=== PATIENT | male | born 1980 | race Hispanic/Latino ===

== ENCOUNTER 2023-08-29 18:40 | Inpatient (IN) | payer MEDICARE ==
[~2023-08-29] VITALS: Ht 165.1 cm; Wt 226.8 kg
[2023-08-29 19:49] LABS: BASOPHILS % 0.4 % (0.0-1.0); EOSINOPHILS # (AUTO) 0.1 (0.0-0.4); EOSINOPHILS % 0.6 % (0.0-6.0); HEMATOCRIT 53.3 % (38.2-49.6); HEMOGLOBIN 16.9 g/dL (14.0-18.0); LYMPHOCYTES # (AUTO) 0.7 (1.0-3.2); LYMPHOCYTES % 8.1 % (18.0-39.1); MEAN CORPUSCULAR HEMOGLOBIN 27.2 pg (28-32); MEAN CORPUSCULAR HGB CONC 31.7 g/dL (31-35); MEAN CORPUSCULAR VOLUME 85.7 fL (81-99); MONOCYTES # (AUTO) 0.3 (0.2-0.8); MONOCYTES % 3.9 % (4.4-11.3); NEUTROPHILS % 86.5 % (38.7-80.0); PLATELET COUNT 165 x10e3/uL (140-360); RED BLOOD COUNT 6.22 x10e6/uL (4.3-5.7); RED CELL DISTRIBUTION WIDTH 16.8 % (11.7-14.4); WHITE BLOOD COUNT 8.13 x10e3/uL (4.8-10.8)
[2023-08-29 20:07] LABS: ALBUMIN 3.6 g/dL (3.5-5.0); ALBUMIN/GLOBULIN RATIO 0.9 (0.8-2.0); ANION GAP 13.3 mmol/L (8-16); BILIRUBIN,TOTAL 1.2 mg/dL (0.2-1.2); CALCIUM 8.9 mg/dL (8.4-10.2); CREATININE, SERUM 0.78 mg/dL (0.72-1.25); POTASSIUM 4.3 mmol/L (3.5-5.1); TOTAL PROTEIN 7.4 g/dL (6.5-8.1)
[2023-08-29] MEDS ORDERED: SODIUM CHLORIDE FLUSH 10 ML SYR INJ PRN (22:00)
[2023-08-29] MEDS ORDERED: METOLAZONE 5 MG TAB PO STA (22:36)
[2023-08-29] MEDS ORDERED: POTASSIUM CHLORIDE 20 MEQ TAB CR PO PRN (22:45)
[2023-08-29] MEDS ORDERED: MELATONIN 5 MG TABLET PO PRN (22:45)
[2023-08-29] MEDS ORDERED: SIMETHICONE 80 MG CHEW PO PRN (22:45)
[2023-08-29] MEDS ORDERED: ALBUTEROL/IPRATROPIUM 3 ML NEB NEB PRN (22:45)
[2023-08-29] MEDS ORDERED: HYDRALAZINE HCL 20 MG/ML VIAL IV PRN (22:45)
[2023-08-29] MEDS ORDERED: LIDOCAINE 4% PATCH TP PRN (22:45)
[2023-08-29] MEDS ORDERED: BENZONATATE 100 MG CAP PO PRN (22:45)
[2023-08-29] MEDS ORDERED: DIPHENHYDRAMINE HCL 25 MG CAP PO PRN (22:45)
[2023-08-29] MEDS ORDERED: DEXTROSE 50% SYRINGE 50 ML IV PRN (22:45)
[2023-08-29] MEDS ORDERED: FUROSEMIDE INJ 100 MG in SODIUM CHLORIDE 0.9% 90 ML IV SCH (23:30)
[2023-08-29] MEDS ORDERED: Vancomycin IV 1.5 GM in SODIUM CHLORIDE 0.9% 250ML 250 ML IV SCH (23:30)
[2023-08-30] VITALS (12 sets, daily range): BP systolic 119–138; BP diastolic 68–86; PULSE 62–84; RESP 18–20; TEMP 97.1–98.6; O2SAT 92–100
[2023-08-30] MEDS ORDERED: SODIUM CHLORIDE 0.9% 250ML 250 ML ONE ×2 (00:50→01:47)
[2023-08-30] MEDS: FUROSEMIDE INJ 10 MG/ML 4 ML VIAL IV SCH ×2 (01:04→10:00)
[2023-08-30] MEDS ORDERED: FUROSEMIDE INJ 10 MG/ML 10 ML VIAL ONE (01:29)
[2023-08-30] MEDS: FUROSEMIDE INJ 100 MG in SODIUM CHLORIDE 0.9% 90 ML IV SCH ×3 (01:48→17:33)
[2023-08-30] MEDS ORDERED: METOPROLOL TART50 MG PO (02:51)
[2023-08-30] MEDS ORDERED: BENAZEPRIL HCL40 MG PO (02:51)
[2023-08-30] MEDS ORDERED: FUROSEMIDE INJ 10 MG/ML 4 ML VIAL IV SCH (03:00)
[2023-08-30] MEDS: ACETAMINOPHEN 325 MG TAB PO PRN ×2 (03:15→10:14)
[2023-08-30 06:37] LABS: BASOPHILS % 0.2 % (0.0-1.0); HEMATOCRIT 53.8 % (38.2-49.6); HEMOGLOBIN 17.3 g/dL (14.0-18.0); LYMPHOCYTES # (AUTO) 0.7 (1.0-3.2); LYMPHOCYTES % 7.2 % (18.0-39.1); MEAN CORPUSCULAR HEMOGLOBIN 27.5 pg (28-32); MEAN CORPUSCULAR HGB CONC 32.2 g/dL (31-35); MEAN CORPUSCULAR VOLUME 85.7 fL (81-99); MONOCYTES # (AUTO) 0.5 (0.2-0.8); MONOCYTES % 5.2 % (4.4-11.3); NEUTROPHILS # (AUTO) 8.6 (2.1-6.9); NEUTROPHILS % 86.6 % (38.7-80.0); PLATELET COUNT 208 x10e3/uL (140-360); RED BLOOD COUNT 6.28 x10e6/uL (4.3-5.7); RED CELL DISTRIBUTION WIDTH 16.5 % (11.7-14.4); WHITE BLOOD COUNT 9.98 x10e3/uL (4.8-10.8)
[2023-08-30 06:58] LABS: ALBUMIN 3.7 g/dL (3.5-5.0); ALBUMIN/GLOBULIN RATIO 0.9 (0.8-2.0); ANION GAP 17.2 mmol/L (8-16); BILIRUBIN,TOTAL 1.2 mg/dL (0.2-1.2); CALCIUM 9.7 mg/dL (8.4-10.2); CREATININE, SERUM 0.89 mg/dL (0.72-1.25); POTASSIUM 4.2 mmol/L (3.5-5.1)
[2023-08-30] MEDS: PANTOPRAZOLE SOD 40 MG TABEC PO SCH (10:00)
[2023-08-30] MEDS: ENOXAPARIN SOD INJ 40 MG/0.4 ML SYR SC SCH ×2 (10:01→17:33)
[2023-08-30] MEDS ORDERED: Vancomycin IV 1 GM VIAL ONE ×2 (10:50→20:38)
[2023-08-30] MEDS: VANCOMYCIN 1.5 GM/300 ML 300 ML IV SCH ×2 (11:28→21:52)
[2023-08-30] MEDS: HYDROCODONE/APAP 5MG-325MG TAB PO PRN (20:29)
[2023-08-30] MEDS ORDERED: SODIUM CHLORIDE 0.9% 500ML 500 ML ONE (20:39)
[2023-08-30] MEDS ORDERED: Vancomycin IV 500 MG ONE (20:45)
[2023-08-30] MEDS: DOCUSATE SODIUM 100 MG CAP PO PRN (21:11)
[2023-08-31] VITALS (12 sets, daily range): BP systolic 129–157; BP diastolic 78–92; PULSE 71–97; RESP 16–20; TEMP 97.7–98.2; O2SAT 93–98
[2023-08-31] MEDS: FUROSEMIDE INJ 100 MG in SODIUM CHLORIDE 0.9% 90 ML IV SCH (03:02)
[2023-08-31 05:40] LABS: BASOPHILS # (AUTO) 0.1 (0.0-0.1); BASOPHILS % 0.6 % (0.0-1.0); EOSINOPHILS # (AUTO) 0.2 (0.0-0.4); EOSINOPHILS % 1.7 % (0.0-6.0); HEMOGLOBIN 18.5 g/dL (14.0-18.0); LYMPHOCYTES # (AUTO) 2.1 (1.0-3.2); LYMPHOCYTES % 19.5 % (18.0-39.1); MEAN CORPUSCULAR HEMOGLOBIN 27.5 pg (28-32); MEAN CORPUSCULAR HGB CONC 32.5 g/dL (31-35); MEAN CORPUSCULAR VOLUME 84.8 fL (81-99); MONOCYTES # (AUTO) 1.4 (0.2-0.8); MONOCYTES % 12.3 % (4.4-11.3); NEUTROPHILS # (AUTO) 7.1 (2.1-6.9); NEUTROPHILS % 65.2 % (38.7-80.0); PLATELET COUNT 196 x10e3/uL (140-360); RED BLOOD COUNT 6.72 x10e6/uL (4.3-5.7); RED CELL DISTRIBUTION WIDTH 17.1 % (11.7-14.4); WHITE BLOOD COUNT 10.95 x10e3/uL (4.8-10.8)
[2023-08-31 06:08] LABS: ANION GAP 19.2 mmol/L (8-16); CALCIUM 9.6 mg/dL (8.4-10.2); CREATININE, SERUM 1.2 mg/dL (0.72-1.25); POTASSIUM 3.2 mmol/L (3.5-5.1)
[2023-08-31] MEDS: ONDANSETRON HCL INJ 2MG/ML 2ML 2 MG/ML VIAL IV PRN ×3 (08:46→23:47)
[2023-08-31] MEDS: PAROXETINE HCL 12.5 MG TABSR PO SCH (08:49)
[2023-08-31] MEDS: ENOXAPARIN SOD INJ 40 MG/0.4 ML SYR SC SCH ×2 (08:49→17:50)
[2023-08-31] MEDS: PANTOPRAZOLE SOD 40 MG TABEC PO SCH (08:49)
[2023-08-31] MEDS: HYDROCODONE/APAP 5MG-325MG TAB PO PRN ×2 (11:09→23:47)
[2023-08-31] MEDS: VANCOMYCIN 1.5 GM/300 ML 300 ML IV SCH ×2 (11:09→22:11)
[2023-08-31] MEDS ORDERED: POTASSIUM CHLORIDE 20 MEQ TAB CR PO ONE (14:30)
[2023-08-31] MEDS: ACETAZOLAMIDE SODIUM 500 MG/VIAL IV SCH (17:50)
[2023-09-01] VITALS (9 sets, daily range): BP systolic 120–132; BP diastolic 62–89; PULSE 73–97; RESP 18–20; TEMP 98–100.1; O2SAT 93–97
[2023-09-01] MEDS: HYDROCODONE/APAP 5MG-325MG TAB PO PRN ×3 (05:20→22:43)
[2023-09-01] MEDS: ACETAZOLAMIDE SODIUM 500 MG/VIAL IV SCH ×2 (08:35→18:02)
[2023-09-01] MEDS: PAROXETINE HCL 12.5 MG TABSR PO SCH (08:36)
[2023-09-01] MEDS: PANTOPRAZOLE SOD 40 MG TABEC PO SCH (08:36)
[2023-09-01] MEDS: ENOXAPARIN SOD INJ 40 MG/0.4 ML SYR SC SCH ×2 (08:36→18:03)
[2023-09-01 11:55] LABS: ANION GAP 16.6 mmol/L (8-16); CALCIUM 9.6 mg/dL (8.4-10.2); CREATININE, SERUM 0.99 mg/dL (0.72-1.25); POTASSIUM 3.6 mmol/L (3.5-5.1)
[2023-09-01] MEDS: VANCOMYCIN 1.5 GM/300 ML 300 ML IV SCH ×2 (12:09→21:48)
[2023-09-01] MEDS ORDERED: FUROSEMIDE INJ 10 MG/ML 4 ML VIAL IV ONE (13:30)
[2023-09-01] MEDS: ONDANSETRON HCL INJ 2MG/ML 2ML 2 MG/ML VIAL IV PRN (14:23)
[2023-09-02] VITALS (9 sets, daily range): BP systolic 105–123; BP diastolic 52–77; PULSE 76–111; RESP 18–22; TEMP 97.7–98.1; O2SAT 95–99
[2023-09-02] MEDS: HYDROCODONE/APAP 5MG-325MG TAB PO PRN ×3 (06:08→23:30)
[2023-09-02 06:58] LABS: BASOPHILS # (AUTO) 0.1 (0.0-0.1); BASOPHILS % 0.8 % (0.0-1.0); EOSINOPHILS # (AUTO) 0.2 (0.0-0.4); EOSINOPHILS % 2.3 % (0.0-6.0); HEMATOCRIT 55.6 % (38.2-49.6); HEMOGLOBIN 17.3 g/dL (14.0-18.0); LYMPHOCYTES # (AUTO) 0.9 (1.0-3.2); LYMPHOCYTES % 11.5 % (18.0-39.1); MEAN CORPUSCULAR HEMOGLOBIN 27.2 pg (28-32); MEAN CORPUSCULAR HGB CONC 31.1 g/dL (31-35); MEAN CORPUSCULAR VOLUME 87.4 fL (81-99); MONOCYTES # (AUTO) 0.9 (0.2-0.8); MONOCYTES % 11.4 % (4.4-11.3); NEUTROPHILS # (AUTO) 5.8 (2.1-6.9); NEUTROPHILS % 73.6 % (38.7-80.0); PLATELET COUNT 152 x10e3/uL (140-360); RED BLOOD COUNT 6.36 x10e6/uL (4.3-5.7); RED CELL DISTRIBUTION WIDTH 15.9 % (11.7-14.4); WHITE BLOOD COUNT 7.82 x10e3/uL (4.8-10.8)
[2023-09-02 07:14] LABS: ANION GAP 12.7 mmol/L (8-16); CALCIUM 8.9 mg/dL (8.4-10.2); CREATININE, SERUM 0.86 mg/dL (0.72-1.25); POTASSIUM 3.7 mmol/L (3.5-5.1)
[2023-09-02] MEDS: ACETAZOLAMIDE SODIUM 500 MG/VIAL IV SCH ×2 (09:34→16:59)
[2023-09-02] MEDS: ONDANSETRON HCL INJ 2MG/ML 2ML 2 MG/ML VIAL IV PRN ×2 (09:35→17:03)
[2023-09-02] MEDS: PANTOPRAZOLE SOD 40 MG TABEC PO SCH (09:35)
[2023-09-02] MEDS: ENOXAPARIN SOD INJ 40 MG/0.4 ML SYR SC SCH ×2 (09:35→16:59)
[2023-09-02] MEDS: PAROXETINE HCL 12.5 MG TABSR PO SCH (09:35)
[2023-09-02] MEDS: METOPROLOL SUCCINATE 50 MG TAB XL PO SCH (09:37)
[2023-09-02] MEDS: ACETAMINOPHEN 325 MG TAB PO PRN ×3 (09:49→20:43)
[2023-09-02] MEDS: VANCOMYCIN 1.5 GM/300 ML 300 ML IV SCH (11:31)
[2023-09-02] MEDS: CEFTRIAXONE 2 GM in SODIUM CHLORIDE 0.9% 100 ML IV SCH (12:58)
[2023-09-02] MEDS: DOCUSATE SODIUM 100 MG CAP PO PRN ×2 (13:06→20:32)
[2023-09-02] MEDS ORDERED: CLINDAMYCIN HC150 MG PO (13:27)
[2023-09-02] MEDS ORDERED: POTASSIUM CHLO20 ME1 PO (13:27)
[2023-09-02] MEDS ORDERED: BUMETANIDE1 MG PO (13:27)
[2023-09-02] MEDS ORDERED: POTASSIUM CHLORIDE 20 MEQ TAB CR PO ONE (13:45)
[2023-09-02] MEDS: FUROSEMIDE INJ 10 MG/ML 4 ML VIAL IV SCH ×2 (14:17→20:33)
[2023-09-02] MEDS ORDERED: FUROSEMIDE INJ 10 MG/ML 2 ML VIAL IV SCH (17:00)
[2023-09-03] VITALS: BP 132/69; PULSE 86; RESP 18; TEMP 98; O2SAT 98
[2023-09-03 04:00] VITALS: BP 132/58; PULSE 89; RESP 18; TEMP 98.6; O2SAT 100
[2023-09-03] MEDS: ONDANSETRON HCL INJ 2MG/ML 2ML 2 MG/ML VIAL IV PRN ×2 (04:07→10:55)
[2023-09-03] MEDS: ACETAMINOPHEN 325 MG TAB PO PRN ×2 (04:08→14:59)
[2023-09-03] MEDS: FUROSEMIDE INJ 10 MG/ML 4 ML VIAL IV SCH (05:21)
[2023-09-03 07:28] VITALS: PULSE 85; RESP 20; O2SAT 93
[2023-09-03 08:35] VITALS: BP 125/80; PULSE 90; RESP 20; TEMP 98.7; O2SAT 92
[2023-09-03 09:00] VITALS: BP 125/80; PULSE 90; RESP 20; TEMP 98.7; O2SAT 92
[2023-09-03] MEDS: CEFTRIAXONE 2 GM in SODIUM CHLORIDE 0.9% 100 ML IV SCH (09:59)
[2023-09-03] MEDS: PANTOPRAZOLE SOD 40 MG TABEC PO SCH (10:00)
[2023-09-03] MEDS: PAROXETINE HCL 12.5 MG TABSR PO SCH (10:00)
[2023-09-03] MEDS: ACETAZOLAMIDE SODIUM 500 MG/VIAL IV SCH (10:01)
[2023-09-03] MEDS: METOPROLOL SUCCINATE 50 MG TAB XL PO SCH (10:01)
[2023-09-03] MEDS: ENOXAPARIN SOD INJ 40 MG/0.4 ML SYR SC SCH (10:01)
[2023-09-03 12:16] VITALS: BP 137/83; PULSE 73; RESP 21; TEMP 98; O2SAT 98
== END 2023-09-03 16:30 | disposition home or self-care (01) | DRG 602 ==
LOC: ER 19:28 → ERHOLD 21:57 → MED/SURG3 23:54 → OBSVTOIN 08-30 14:16
PROVIDERS: ADMIT Internal Medicine; ATTEND Internal Medicine
DX: L03.116 Cellulitis of left lower limb (principal); I50.33 Acute on chronic diastolic (congestive) heart failure; N18.6 End stage renal disease; L03.311 Cellulitis of abdominal wall; Z68.45 Body mass index [BMI] 70 or greater, adult; I13.2 Hypertensive heart and chronic kidney disease with heart failure and with stage 5 chronic kidney disease, or end stage renal disease; L03.115 Cellulitis of right lower limb; E66.01 Morbid (severe) obesity due to excess calories; I89.0 Lymphedema, not elsewhere classified; I87.2 Venous insufficiency (chronic) (peripheral); F32.A Depression, unspecified; R06.03 Acute respiratory distress; G47.30 Sleep apnea, unspecified; G47.33 Obstructive sleep apnea (adult) (pediatric); E87.70 Fluid overload, unspecified; Z91.158 Patient's noncompliance with renal dialysis for other reason; Z20.822 Contact with and (suspected) exposure to COVID-19
CPT/HCPCS: 36415; 71046; 80048; 80053; 80202; 83735; 83880; 84484; 85025; 93005; 93306; 94799; 99284; G0378; J0692; J0696; J1650; J1940; J2405; J3370; J7040; J7050; U0002